=== PATIENT | male | born 1990 | race Caucasian/White ===

== ENCOUNTER 2016-06-08 08:00 | Emergency (ER) | payer OTHER ==
[~2016-06-08] VITALS: Ht 167.6 cm; Wt 56.7 kg
--- NOTE | 2016-06-08 08:00 | NUR ---
Patient BIBA and taken to bed 02 via gurney per EMS.
--- NOTE | 2016-06-08 08:01 | NUR ---
Dr. Whitley evaluating patient at bedside.
[2016-06-08 08:05] VITALS: BP 128/71
--- NOTE | 2016-06-08 08:09 | NUR ---
PT BIBA DUE TO SOB THAT STARTED 35 MINUTES AGO. PT STATES HE HAS ASTHMA.ALBUTEROL WAS GIVEN BY EMS. NO ACUTE DISTRESS NOTED. DENIES PAIN AT THIS TIME. 02 SAT OF 96%.VSS.HOB ELEVATED, SAFETY PRECAUTION INSTITUTED.ALL MONITORS PLACED IN. NEEDS ATTENDED. DR FLORIAN AT BEDSIDE.WILL CONTINUE TO MONITOR PT.
--- NOTE | 2016-06-08 08:40 | NUR ---
NO ACUTE DISTRESS NOTED AT THIS TIME.PT AMBULATED TO RESTROOM
--- NOTE | 2016-06-08 09:12 | NUR ---
PT SMILING.EATING BREAKFAST ON BED.ALL MONITORS PLACED IN.NO ACUTE DISTRESS NOTED AT THIS TIME. WILL CONTINUE TO MONITOR PT.
--- NOTE | 2016-06-08 09:27 | NUR ---
PT ATE 100 % OF HIS FOOD.SITTING ON BED COMFORTABLY. DENIES SOB,CP.NO ACUTE DISTRESS NOTED AT THIS TIME.WILL CONTINUE TO MONITOR PT.
--- NOTE | 2016-06-08 09:43 | NUR ---
Patient discharged with v/s stable. Written and verbal after care instructions given and explained. Patient alert, oriented and verbalized understanding of instructions. Ambulatory with steady gait. All questions addressed prior to discharge. ID band removed. Patient advised to follow up with PMD.Opportunity to ask questions provided and answered.ENCOIURAGED FLUID INTAKE AND PT AGREED TO IT.
[2016-06-08 09:44] VITALS: BP 100/68
== END 2016-06-08 09:43 | disposition home or self-care (01) ==
LOC: MED 08:00
DX: F41.9 Anxiety disorder, unspecified (principal); J45.909 Unspecified asthma, uncomplicated; F17.200 Nicotine dependence, unspecified, uncomplicated; Z76.5 Malingerer [conscious simulation]

== ENCOUNTER 2017-06-29 12:55 | Emergency (ER) | payer OTHER ==
[~2017-06-29] VITALS: Ht 162.6 cm; Wt 56.7 kg
[2017-06-29 12:57] VITALS: BP 106/69
--- NOTE | 2017-06-29 12:58 | NUR ---
Patient GARRISONWayne YOLIE, triaged by RN. Waiting for an available bed.
--- NOTE | 2017-06-29 13:15 | NUR ---
27 YO M BIB AMBULANCE W/ C/O N/V X 4-5 TIMES IN PAST 3 HOURS. PT C/O "THROBBING" ABD PAIN OF 6/10 TO MEDIAL TORSO. PAIN DOES NOT RADIATE. PT HAS HX OF ASTHMA. NKDA. PT LYING IN POSITION IN THE BED DURING ASSESSMENT, WITH HEAD UNDERNEATH COVERS REPORTING NAUSEA. ZOFRAN WAS GIVEN ON AMBULANCE. PT W/O VOMITING SINCE IN ER. VSS. RR EVEN AND UNLABORED WITH NO S/S OF ACUTE DISTRESS. ABD SOFT WITH TENDERNESS UPON PALPATION TO THE STOMACH AREA. PT REPORTS HAS NOT EATEN IN OVER 16 HOURS, BUT BELIEVES LAST MEAL (SPANISH FOOD) CAUSED EPISODES OF N/V. PT NEEDS MET AT THIS TIME. WILL CONTINUE TO MONITOR.
[2017-06-29] MEDS ORDERED: ONDANSETRON 4 MG ODT PO ONE (15:20)
--- NOTE | 2017-06-29 15:55 | NUR ---
ORANGE JUICE PROVIDED TO PATIENT FOR PO CHALLENGE PER ER MD DR. BENTLEY; PT TOLERATED JUICE WELL AT THIS TIME; PRIMARY RN NOTIFIED TO CONTINUE TO MONITOR.
[2017-06-29 16:22] VITALS: BP 110/80
--- NOTE | 2017-06-29 16:24 | NUR ---
Patient discharged with v/s stable. Written and verbal after care instructions given and explained. Patient alert, oriented and verbalized understanding of instructions. Ambulatory with steady gait. All questions addressed prior to discharge. ID band removed. Patient advised to follow up with PMD. Rx of ZOFRAN 4MG given. Patient educated on indication of medication including possible reaction and side effects. Opportunity to ask questions provided and answered.
== END 2017-06-29 16:24 | disposition home or self-care (01) ==
LOC: MED 12:55
DX: R11.2 Nausea with vomiting, unspecified (principal); R10.84 Generalized abdominal pain; J45.909 Unspecified asthma, uncomplicated
CPT/HCPCS: 99283; S0119

== ENCOUNTER 2018-02-06 09:53 | Emergency (ER) | payer OTHER ==
[~2018-02-06] VITALS: Ht 165.1 cm; Wt 62.6 kg
--- NOTE | 2018-02-06 09:54 | NUR ---
PT BIBA BLS TO BED 09 Addendum: 02/06/18 at 1001 by [facility] PT BIBA ALS
[2018-02-06 09:55] VITALS: BP 115/71
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
--- NOTE | 2018-02-06 10:23 | NUR ---
Patient being evaluated by physician at bedside.
[2018-02-06 11:04] VITALS: BP 102/59
--- NOTE | 2018-02-06 11:04 | NUR ---
Patient discharged with v/s stable. Written and verbal after care instructions given and explained. Patient alert, oriented and verbalized understanding of instructions. Ambulatory with steady gait. All questions addressed prior to discharge. ID band removed. Patient advised to follow up with PMD. Rx of PREDNISONE, ALBUTEROL INHALATION given. Patient educated on indication of medication including possible reaction and side effects. Opportunity to ask questions provided and answered. PROVIDED WITH A BUS PASS.
== END 2018-02-06 11:04 | disposition home or self-care (01) ==
LOC: MED 09:53
DX: J45.901 Unspecified asthma with (acute) exacerbation (principal)
CPT/HCPCS: 99283

== ENCOUNTER 2018-02-13 21:38 | Emergency (ER) | payer OTHER ==
[~2018-02-13] VITALS: Ht 162.6 cm; Wt 61.2 kg
[2018-02-13 21:38] VITALS: BP 106/56
[2018-02-13] MEDS ORDERED: predniSONE 20 MG TAB PO ONE (23:35)
[2018-02-13] MEDS ORDERED: ALBUTEROL SULFATE/IPRATROPIU 3 ML SOL IH ONE (23:35)
[2018-02-13] MEDS ORDERED: ALBUTEROL 0.083% 2.5 MG/3 ML NEBU INH ONE (23:35)
[2018-02-13 23:58] VITALS: BP 128/82
[2018-02-14] MEDS ORDERED: PRON INH (20:24)
== END 2018-02-13 23:55 | disposition home or self-care (01) ==
LOC: MED 21:38
DX: J45.901 Unspecified asthma with (acute) exacerbation (principal)
CPT/HCPCS: 99283; J7512; J7613; J7620; 94640

== ENCOUNTER 2022-10-26 20:26 | Emergency (ER) | payer OTHER ==
[~2022-10-26] VITALS: Ht 162.6 cm; Wt 59.0 kg
[2022-10-26 20:26] VITALS: BP 108/62; PULSE 99; RESP 18; TEMP 98.2; O2SAT 98
[~2022-10-26 20:26] MED LIST: ALBU0.0912 IH; ALBU0.0912 INH; PRED20TA5 PO; PRON INH
--- NOTE | 2022-10-26 20:29 | NUR ---
TO LOBBY A/W GALA MICHAELS FOR ASTHMA.
[2022-10-26] MEDS ORDERED: predniSONE 20 MG TAB PO ONE (20:30)
--- NOTE | 2022-10-26 20:30 | NUR ---
SEEN AND EXAMINED BY NEY
[2022-10-26 20:43] VITALS: BP 108/62; PULSE 99; RESP 18; TEMP 98.2; O2SAT 98
--- NOTE | 2022-10-26 20:56 | NUR ---
Patient discharged with v/s stable. Written and verbal after care instructions given and explained BY DR. HOLDEN. Patient verbalized understanding. Ambulatory with steady gait. All questions addressed prior to discharge. Advised to follow up with PMD.
== END 2022-10-26 20:56 | disposition home or self-care (01) ==
LOC: MED 20:26
DX: J45.901 Unspecified asthma with (acute) exacerbation (principal); Z79.899 Other long term (current) drug therapy
CPT/HCPCS: 99283; J7512